=== PATIENT | male | born 2000 | race Caucasian/White ===

== ENCOUNTER 2022-08-10 15:23 | Emergency (ER) | payer BC, SELFPAY ==
--- NOTE | ~2022-08-10 | CT_ITS ---
EXAMINATION: CT abdomen pelvis wo con DATE: 08/10/2022 19:30 INDICATION: Right flank pain. TECHNIQUE: Computed tomography (CT) of the abdomen and pelvis was performed without intravenous contr ast. Automated exposure control and iterative reconstruction technique were employed. The dose-length product was 478.03 mGy-cm. COMPARISON: None. FINDINGS: The visualized portions of the lung bases are clear without pneumonia or pleural effusion. The heart size is normal. No pericardial effusion. There is a small sliding hiatal hernia. The liver, gallbladder, spleen, pancreas, and adrenal glands are normal. There are two 2 mm stones in right kid delgado. There is mild right hydronephrosis and hydroureter. There is a 4 mm stone in distal right ureter . There are two 2 mm stones in left kidney. There are no dilated loops of bowel. The appendix is norm al. There are no pathologically enlarged lymph nodes. There is no free intraperitoneal fluid. The bon es are unremarkable. IMPRESSION: 1. 4 mm stone in distal right ureter with mild right hydronephrosis and hydroureter. 2. Small bilateral nonobstructing kidney stones. Reviewed, dictated and finalized at location E. IMPRESSION: 1. 4 mm stone in distal right ureter with mild right hydronephrosis and hydrour eter. 2. Small bilateral nonobstructing kidney stones.
[2022-08-10 15:47] VITALS: BP 132/86; PULSE 68; RESP 18; TEMP 36.8; O2SAT 100
[2022-08-10 16:06] LABS: Basophils Percent Auto 0.2 % (0.2-1.2); Eosinophils Absolute Auto 0.1 K/mm3 (0-0.3); Eosinophils Percent Auto 0.8 % (0-4.4); Hematocrit 42.3 % (42.0-52.0); Hemoglobin 14.9 g/dL (14.0-18.0); Immature Granulocyte Absolute 0.07 K/mm3 (0.00-0.031); Immature Granulocyte Percent A 0.5 % (0-0.5); Lymphocytes Absolute Auto 1.59 K/mm3 (0.9-3.2); Lymphocytes Percent Auto 12.4 % (18.3-44.2); Mean Corpuscular HGB Conc 35.2 g/dl (32-36); Mean Corpuscular Hemoglobin 31.4 pg (26-34); Mean Corpuscular Volume 89.2 fl (80-100); Mean Platelet Volume 9.2 fl (7.4-10.4); Monocytes Absolute Auto 0.7 K/mm3 (0.1-0.6); Monocytes Percent Auto 5.7 % (2.6-8.5); Neutrophils Absolute Auto 10.3 K/mm3 (1.3-6.7); Neutrophils Percent Auto 80.4 % (45.5-73.1); Platelet Count Result 387 k/mm3 (150-375); Red Blood Count 4.74 M/mm3 (4.6-6.20); Red Cell Distribution Width 11.8 % (11.5-14.5); White Blood Count 12.8 K/mm3 (4.5-10.0)
[2022-08-10 16:17] LABS: Alanine Aminotransferase 26 U/L (6-50); Albumin Level 4.8 g/dL (3.5-5.1); Alkaline Phosphatase 80 U/L (38-126); Anion Gap 12 mmol/L (8-16); Aspartate Amino Transferase 29 U/L (17-59); Bilirubin,Total 0.8 mg/dL (0.2-1.3); Blood Urea Nitrogen 9 mg/dL (9-20); Calcium 9.8 mg/dL (8.4-10.2); Carbon Dioxide 21 mmol/L (22-30); Chloride 103 mmol/L (98-107); Estimated CRCL calculation 104 ml/min; Estimated Glomerular Filt Rate > 60; Glucose 141 mg/dL (65-110); Potassium 3.1 mmol/L (3.4-5.0); Sodium 136 mmol/L (137-145)
[2022-08-10 18:53] VITALS: BP 133/79; PULSE 84; TEMP 36.8; O2SAT 99
[2022-08-10 18:53] LABS: Amorphous Sediment Urine Present; Appearance Urine Turbid (Clear); Bacteria Urine None Seen /hpf; Bilirubin Urine Negative (Negative); Blood Urine 3+ (Negative); Calcium Oxalate Crystals Urine Present /hpf; Color Urine Dark Yellow (Yellow); Glucose Urine UA Negative (Negative); Ketones Urine Trace mg/dL (Negative); Leukocyte Esterase Ur 1+ LEU/UL (Negative); Nitrate Urine Negative (Negative); Protein Urine 2+ mg/dL (Negative); RBC Urine >100 /hpf (0-2); Specific Grav Ur 1.027 (1.001-1.035); Squamous Epithelial Cell Urine Few /hpf (Few); pH Urine 8.5 (5.0-9.0)
[2022-08-10 19:05] LABS: Add Urine Microscopic? YES
--- NOTE | 2022-08-10 20:06 | ED.BACK ---
HPI - Back Pain/Injury General Chief Complaint: Back Pain/Injury <Ramírez Pearson PA-C - Last Filed: 08/11/22 02:36> Stated Complaint: Right flank pain <FARIDEH Meng Last Filed: 08/11/22 02:36> Time Seen by Provider: 08/10/22 20:01 <FARIDEH Meng Last Filed: 08/11/22 02:36> Source: patient <FARIDEH Meng Last Filed: 08/11/22 02:36> Mode of arrival: ambulatory <FARIDEH Meng Last Filed: 08/11/22 02:36> Limitations: no limitations <FARIDEH Meng Last Filed: 08/11/22 02:36> History of Present Illness HPI Narrative: This is a 21-year-old male presents the ED with chief complaint of right flank pain onset at noon today and worsening since onset. Reports several episodes of vomiting today. He reports he is still feeling nauseous. Reports the pain is primarily in the right flank but will radiate into the right lower abdomen and right groin and intermittently. States that the pain has also been intermittent in severity but currently at a 7 out of 10. Denies fevers, chills, dysuria or hematuria. Denies diarrhea. Last ate food last night. <Ramírez Pearson PA-C - Last Filed: 08/11/22 02:36> Related Data Allergies/Adverse Reactions: Allergies Allergy/AdvReac Type Severity Reaction Status Date / Time minocycline Allergy Hives Verified 08/10/22 15:28 <FARIDEH Meng Last Filed: 08/11/22 02:36> Review of Systems Review of Systems: CONSTITUTIONAL: Denies fever, chills, or sweats. EYES: Denies visual changes, redness, or discharge. ENT: Denies rhinorrhea, congestion, sore throat, or otalgia. CARDIOVASCULAR: Denies chest pain, palpitations, or edema. RESPIRATORY: Denies cough or dyspnea. GASTROINTESTINAL: See HPI GENITOURINARY: See HPI SKIN: Denies rash or itching. MUSCULOSKELETAL: Denies back pain, joint pain, or myalgia. NEUROLOGIC: Denies headache, numbness, dizziness, or weakness. PSYCHIATRIC: Denies anxiety or depression. <Ramírez Pearson PA-C - Last Filed: 08/11/22 02:36> Exam Narrative: GENERAL: Well-appearing, well-nourished, and in no acute distress. HEAD: Normocephalic, atraumatic. EYES: PERRLA and EOMI. ENT: Nares clear, no rhinorrhea or epistaxis. Mucous membranes moist. Oropharynx without tonsillar hypertrophy exudate or other lesions. NECK: Supple. No adenopathy or masses. CHEST: No respiratory distress. Clear to auscultation. No wheezes rales or rhonchi HEART: Regular rate and rhythm. No murmur heard. Normal peripheral pulses. ABDOMEN: Right flank tenderness present. Soft, otherwise nontender, nondistended, normal active bowel sounds. Negative peritoneal signs. EXTREMITIES: Normal range of motion. No edema. SKIN: Warm, dry, no rash. NEURO: Alert and oriented x3. No focal deficits. PSYCH: Normal mood and affect. <Ramírez Pearson PA-C - Last Filed: 08/11/22 02:36> Course HEALTHCARE BUSINESS ANALYST/PA Physician Supervision This visit was performed by both a physician (myself) and an APC (PEACE Pearson). I performed all aspects of the MDM as documented. <Олег Henderson MD - Last Filed: 08/11/22 08:29> Vital Signs Vital signs: Vital Signs Temperature 98.2 F 08/10/22 15:47 Pulse Rate 68 08/10/22 15:47 Respiratory Rate 18 08/10/22 15:47 Blood Pressure 132/86 08/10/22 15:47 Pulse Oximetry 100 08/10/22 15:47 Oxygen Delivery Room Air 08/10/22 15:47 Temperature 98.2 F 08/10/22 18:53 Pulse Rate 66 08/10/22 21:06 Respiratory Rate 16 08/10/22 21:06 Blood Pressure 135/67 08/10/22 21:06 Pulse Oximetry 98 08/10/22 21:06 Oxygen Delivery Room Air 08/10/22 15:47 <Ramírez Pearson PA-C - Last Filed: 08/11/22 02:36> Vital Signs Temperature 98.2 F 08/10/22 15:47 Pulse Rate 68 08/10/22 15:47 Respiratory Rate 18 08/10/22 15:47 Blood Pressure 132/86 08/10/22 15:47 Pulse Oximetry 100 08/10/22 15:47 Oxygen Delivery Room Air 08/10/22 15:47 Temperature 98.2 F
[2022-08-10] MEDS: ONDANSETRON INJ 4 MG/2 ML VIAL IV PUSH (20:19)
[2022-08-10] MEDS: MORPHINE SULFATE (*CRX) 4 MG/ML INJ IV PUSH (20:19)
[2022-08-10 21:06] VITALS: BP 135/67; PULSE 66; RESP 16; O2SAT 98
== END 2022-08-10 21:24 | disposition home or self-care (01) ==
PROVIDERS: Emergency Medicine; Emergency Provider Physician Assistant
DX: N13.2 Hydronephrosis with renal and ureteral calculous obstruction (principal)
CPT/HCPCS: 36415; 74176; 80053; 81001; 85025; 87086; 96374; 96375; 99284; J2270; J2405